=== PATIENT | male | born 1985 | race Caucasian/White ===

== ENCOUNTER 2016-10-27 02:36 | Emergency (ER) | payer MEDICAID ==
[~2016-10-27 02:36] MED LIST: DEPA250T32 PO; DEPA500T2 PO; REME15TA PO; TRAZ50TA4 PO
[2016-10-27 03:56] LABS: MEAN CORPUSCULAR HEMOGLOBIN 32.2 pg (27.0-33.0); MEAN CORPUSCULAR HGB CONC 34.5 g/dl (32.0-36.5); MEAN CORPUSCULAR VOLUME 93.4 fl (80.0-96.0); RED CELL DISTRIBUTION WIDTH 12.6 % (11.5-14.5); WHITE BLOOD COUNT 7.1 K/mm3 (4.0-10.0)
[2016-10-27 04:08] LABS: AMPHETAMINES LEVEL URINE NEGATIVE (NEGATIVE); BENZODIAZEPINES URINE NEGATIVE (NEGATIVE); COCAINE METABOLITE URINE POSITIVE (NEGATIVE); CONTROL LINE INT CTR LINE PRESENT; METHADONE URINE NEGATIVE (NEGATIVE); OPIATES URINE NEGATIVE (NEGATIVE); TRICYCLIC ANTIDEPRESS URINE NEGATIVE (NEGATIVE)
[2016-10-27 04:17] LABS: ALBUMIN/GLOBULIN RATIO 1.11 (1.00-1.93); ALKALINE PHOSPHATASE 69 U/L (45-117); ANION GAP 11 MEQ/L (8-16); AST/SGOT 30 U/L (15-37); BILIRUBIN,DIRECT < 0.1 MG/DL (0.0-0.2); BILIRUBIN,TOTAL 0.2 MG/DL (0.2-1.0); BLOOD UREA NITROGEN 11 MG/DL (7-18); CARBON DIOXIDE LEVEL 27 MEQ/L (21-32); CHLORIDE LEVEL 107 MEQ/L (98-107); CREATININE FOR GFR 0.75 MG/DL (0.70-1.30); GLOMERULAR FILTRATION RATE > 60.0 (>60); GLUCOSE, FASTING 102 MG/DL (70-105); SODIUM LEVEL 145 MEQ/L (136-145); TOTAL PROTEIN 7.6 GM/DL (6.4-8.2)
[2016-10-27 04:50] LABS: ALT/SGPT 28 U/L (12-78)
[2016-10-27] MEDS ORDERED: DIVALPROEX 250 MG TAB As Ordered ONE (07:35)
--- NOTE | 2016-10-27 15:03 | EDDOCDS ---
Physician Documentation [facility] Name: Chandler Paredes Age: 31 yrs Sex: Male : 1985 Arrival Date: 10/27/2016 Time: 02:36 Bed [facility] Private MD: Disposition: 10/27/16 14:42 Discharged to Home/Self Care. Impression: Alcohol use, unspecified with intoxication. - Condition is Stable. - Discharge Instructions: Alcohol Intoxication. - Medication Reconciliation, Local Pharmacy Hours form. - Follow up: Private Physician; When: Call to arrange an appointment; Reason: Continuance of care. - Problem is new. - Symptoms have improved. Historical: - Allergies: no known allergies; - Home Meds: 1. Depakote ER 750 mg Oral Tb24 bid 2. trazodone 50 mg Oral tab nightly 3. Gabapentin Unknown Oral Unknown 4. Remeron 15 mg Oral tab 1 tab once daily 5. albuterol sulfate 90 mcg/actuation Inhl aepb 1 puff every 4 hours - PMHx: Asthma; Bipolar disorder; PTSD; Seizure Disorder; - PSHx: Hernia repair; - Social history: Smoking status: Patient uses tobacco products, heavy tobacco smoker. No barriers to communication noted, The patient speaks fluent Palauan. - Family history: Not pertinent. - : The pt / caregiver states he / she is not on anticoagulants. Home medication list is obtained from the patient. - Exposure Risk Screening:: None identified. Vital Signs: 10/27 02:46 BP 145 / 76; Pulse 70; Resp 20; Temp 96.3; Pulse Ox 99% ; Weight 65.77 kg / 145 lbs; [facility] Height 5 ft. 6 in. (167.64 cm); Pain 7/10; 05:00 BP 120 / 63; Pulse 71; Resp 18; Temp 96.5; Pulse Ox 96% ; Pain 6/10; mas 14:54 BP 118 / 53; Pulse 68; Resp 16; Temp 97.3(O); Pulse Ox 97% on R/A; Pain 0/10; bcj 02:46 Body Mass Index 23.40 (65.77 kg, 167.64 cm) [facility] MDM: 03:44 Consult PFS/PSA/Order Packer Or Packager ordered. [facility] 03:44 Consult PFS/PSA/Order Packer Or Packager: Patient's case requires discussion with on-call [facility] Psychiatrist ordered. 03:44 PSA/PFS to call Nursing Train Dispatcher, to enter patient data on [place] Safe Act if patient slm involuntarily admitted or transferred for SI or HI ordered. 03:44 Confirm accurate psychiatric medication list and times of last dosage ordered. [facility] 03:44 Detain Pt Until Medically/PFS Cleared ordered. slm 03:45 Acetaminophen Level Ordered. EDMS 03:45 Basic Metabolic Profile Ordered. EDMS 03:45 Complete Blood Count Ordered. EDMS 03:45 Drug Eval Toxicology ED Only Ordered. EDMS 03:45 Ethyl Alcohol (ethanol) Ordered. EDMS 03:45 Liver Profile Ordered. EDMS 03:45 Salicylate Level Ordered. EDMS 03:45 Thyroid Stimulating Hormone Ordered. EDMS 04:40 ECG WITH READING ER PHYS+CARDIAG ordered. EDMS 05:17 REGULAR DIET PLASTIC DE ANDA+DIET ordered. EDMS 05:25 Acetaminophen Level Reviewed. mm11 05:25 Basic Metabolic Profile Reviewed. mm11 05:25 Complete Blood Count Reviewed. mm11 05:25 Drug Eval Toxicology ED Only Reviewed. mm11 05:25 Ethyl Alcohol (ethanol) Reviewed. mm11 05:25 Salicylate Level Reviewed. mm11 05:25 Thyroid Stimulating Hormone Reviewed. mm11 05:25 Liver Profile Reviewed. mm11 06:39 REGULAR DIET PLASTIC DE ANDA+DIET ordered. EDMS 07:[address] - Divalproex Sodium Delayed Release Tablet 750 mg PO once ordered. jjr 11:07 REGULAR DIET PLASTIC DE ANDA+DIET ordered. EDMS 11:42 Consult PFS/PSA/Order Packer Or Packager complete. ml4 11:42 Consult PFS/PSA/Order Packer Or Packager: Patient's case requires discussion with on-call [facility] Psychiatrist complete. 11:42 PSA/PFS to call Nursing Train Dispatcher, to enter patient data [place] Safe [place] if patient ml4 involuntarily admitted or transferred for SI or HI complete. Administered Medications: 07:44 Drug: Depakote DR - Divalproex Sodium 750 mg [divalproex 250 mg tablet,delayed release jjr (3 tabs)] Route: PO; Signatures: Dispatcher [employer] EDMS Jabari Doyle, RN RN Jesusita Martinez, PSA PSA ml4 Kael Lugo, DO mm11 Cornelia Jang, ADOLFO RN jAyanna Cabrales,BERNARD REDN Valorie Ackerman MD MD fg Smith, Kim,RN RN kas2 Dahlia Pedraza,RN RN tm5 MTDD
--- NOTE | 2016-10-27 15:04 | EDDOCDS ---
Nurse's Notes [facility] Name: Chandler Paredes Age: 31 yrs Sex: Male : 1985 Arrival Date: 10/27/2016 Time: 02:36 Bed [facility] Private MD: Diagnosis: Alcohol use, unspecified with intoxication Presentation: 10/27 02:40 Presenting complaint: [place] PD said patient called dispatch saying he had been kas2 drinking tonight. Stated he drank 1/2 bottle of moonshine, 12 pack of bud and 3 trazadone. He stated to dispatch that he wanted to kill everyone in [place] and everyone on [place]. He denies any harm to himself. Mental Health Triage Level: Level 2: The patient displays active homicidal ideations. Adult Sepsis Screening: The patient does not have new or worsening altered mentation. Patient's respiratory rate is less than 22. Systolic blood pressure is greater than 100. Patient has a qSOFA score of 0- Negative Sepsis Screen. Suicide/Homicide risk assessment- The patient admits to and/or has been reported to be having homicidal ideations. Status: Patient is not a vice president [employer] services or dependent. Transition of care: patient was not received from another setting of care. 02:40 Acuity: ISRA Level 3 [facility] 02:40 Method Of Arrival: Police Car [facility] Triage Assessment: 02:45 General: Appears in no apparent distress, comfortable, Behavior is appropriate for age, kas2 cooperative. Pain: Denies pain. Pt Declines HIV testing. Neurological: Level of Consciousness is awake, alert, Oriented to person, place, time. Cardiovascular: Rhythm is regular. Respiratory: Airway is patent Respiratory effort is even, unlabored, Respiratory pattern is regular, symmetrical, Breath sounds are clear. GI: Abdomen is flat, non- distended Bowel sounds present X 4 quads. Derm: Skin is intact, Skin is dry, Skin is pink, warm & dry. Skin temperature is warm. Historical: - Allergies: no known allergies; - Home Meds: 1. Depakote ER 750 mg Oral Tb24 bid 2. trazodone 50 mg Oral tab nightly 3. Gabapentin Unknown Oral Unknown 4. Remeron 15 mg Oral tab 1 tab once daily 5. albuterol sulfate 90 mcg/actuation Inhl aepb 1 puff every 4 hours - PMHx: Asthma; Bipolar disorder; PTSD; Seizure Disorder; - PSHx: Hernia repair; - Social history: Smoking status: Patient uses tobacco products, heavy tobacco smoker. No barriers to communication noted, The patient speaks fluent Faroese. - Family history: Not pertinent. - : The pt / caregiver states he / she is not on anticoagulants. Home medication list is obtained from the patient. - Exposure Risk Screening:: None identified. Screenin:00 Screening information is obtained from the patient. Fall risk: No risks identified. tm5 Assistance ADL's: requires no assistance with activities of daily living. Abuse/DV Screen: The patient / caregiver reports he/she is: not in a situation that causes fear, pain or injury. Nutritional screening: No deficits noted. Advance Directives: Currently, there is no health care proxy. home support is adequate. Assessment: 02:47 General: See triage note.. kas2 03:13 General: Appears in no apparent distress, Behavior is cooperative. General: pt resting slm on stretcher security observing . Respiratory: Airway is patent Respiratory effort is even, unlabored. 04:30 General: Appears in no apparent distress, comfortable, Behavior is appropriate for age, slm cooperative. General: resting on stretcher security observing . Neurological: Level of Consciousness is awake, alert, obeys commands. Respiratory: Airway is patent Respiratory effort is even, unlabored. 05:16 General: Appears in no apparent distress, comfortable, to be sleeping. Behavior is slm quiet. General: pt asleep on stretcher security observing . Respiratory: Airway is patent Respiratory effort is even, unlabored. Derm: Skin is pink, warm & dry. 06:07 General: Appears in no apparent distress, comfortable, Behavior is cooperative, quiet. slm General: pt resting on stretcher asleep security observing . Neurological: Level of Consciousness is alert, obeys commands. Respiratory: Airway is patent Respiratory effort is even, unlabored. 07:28 General: Appears to be sleeping. security in view. jjr 07:45 General: bilateral Velcro wrist splints in place. jjr 09:00 General: Appears in no apparent distress, to be sleeping. Respiratory: Respiratory ead effort is even, unlabored. Derm: Skin is pink, warm & dry. 10:00 General: Appears in no apparent distress, to be sleeping. Respiratory: Respiratory ead effort is even, unlabored. Derm: Skin is pink, warm & dry. 11:00 General: Appears in no apparent distress, to be sleeping. Respiratory: Respiratory ead effort is even, unlabored. Derm: Skin is pink, warm & dry. 13:27 General: Appears in no apparent distress, comfortable, Behavior is cooperative. bcj Neurological: Level of Consciousness is awake, alert. Derm: Skin is pink, warm & dry. 14:54 General: Appears in no apparent distress, comfortable, Behavior is cooperative. Pain: bcj Denies pain. Neurological: Level of Consciousness is awake, alert, Oriented to person, place, time. Respiratory: Airway is patent. Derm: Skin is pink, warm & dry. Psych: 04:01 Mental Health Triage Level: Level 2: The patient displays active suicidal ideations. tm5 The patient was brought to the ED for evaluation because of a legal pickup order. 04:01 Subjective: The patients chief complaint is "I want to kill all of [place] & myself". Delusions are denied. Patient's mood is anxious. 04:01 Objective: Patient is cooperative, Speech is normal. Affect is appropriate. 04:01 Substance abuse: Patient uses beer, unknown amount Last use was 1 hours ago. 04:01 Consultation: ED MD notified of patients status, 04:03 Emergency MH Worker made aware of pt status. Vital Signs: 02:46 BP 145 / 76; Pulse 70; Resp 20; Temp 96.3; Pulse Ox 99% ; Weight 65.77 kg; Height 5 ft. [facility] 6 in. (167.64 cm); Pain 7/10; 05:00 BP 120 / 63; Pulse 71; Resp 18; Temp 96.5; Pulse Ox 96% ; Pain 6/10; mas 14:54 BP 118 / 53; Pulse 68; Resp 16; Temp 97.3(O); Pulse Ox 97% on R/A; Pain 0/10; bcj 02:46 Body Mass Index 23.40 (65.77 kg, 167.64 cm) [facility] Vitals: 02:46 Log In time N/A- police car arrival. kas2 02:46 Log In time N/A- police car arrival. [facility] ED Course: 02:37 Patient visited by Jimenez, Clare, Reg. hs2 02:37 Patient moved to Waiting hs2 02:38 Patient moved to [facility] hs2 02:43 Triage Initiated kas2 02:47 Patient visited by Diana Rubio RN. kas2 02:54 Pt greeted and oriented to ED. Patient advised of names of staff involved in care, mas location of call frankel, wait times and NPO status. Accompanied by Law Enforcement, [employer] on , Patient has correct armband on for positive identification. Placed in psych safe attire. Bed in low position. Call light in reach. Side rails up X 1. Security observing. Property removed, inventory done, secured in belongings bag- Placed in locker 4. Door closed. Noise minimized. Moved to private room. Verbal reassurance given. Warm blanket given. Pillow given. Psych Safety Check: Location: Psych Room. Visual Assessment: cooperative \\T\\ this time. 03:00 Patient visited by Talha Flowers. mas 03:15 Patient visited by Talha Flowers. mas 03:30 Patient visited by Talha Flowers. mas 03:45 Ayanna Augustine LPN is Primary Nurse. slm 03:45 Patient visited by Talha Flowers. mas 03:45 No IV's were initiated during this patient's visit. No procedures done that require slm assistance. Labs drawn. (by ED staff). Sent per order to lab. Urine collected. Urine specimen sent to lab. 03:48 Kael Lugo DO is Attending Physician. mm11 03:48 Patient visited by Kael Lugo DO. mm11 03:49 Acetaminophen Level Sent. slm 03:49 Basic Metabolic Profile Sent. slm 03:49 Complete Blood Count Sent. slm 03:49 Drug Eval Toxicology ED Only Sent. slm 03:49 Ethyl Alcohol (ethanol) Sent. slm 03:49 Liver Profile Sent. slm 03:49 Salicylate Level Sent. slm 03:49 Thyroid Stimulating Hormone Sent. slm 04:00 Patient visited by Talha Flowers. mas 04:00 Awaiting ED physician evaluation. tm5 04:00 The patient / caregiver is instructed regarding the plan of care and ED course. tm5 04:15 Patient visited by Talha Flowers. mas 04:30 Patient visited by Talha Flowers. mas 04:38 Patient visited by Kael Lugo DO. mm11 04:45 Patient visited by Talha Flowers. mas 05:00 Patient visited by Talha Flowers. mas 05:15 Patient visited by Talha Flowers. mas 05:17 Patient visited by Ayanna Augustine LPN. slm 05:30 Patient visited by Talha Flowers. mas 05:45 Patient visited by Talha Flowers. mas 06:00 Patient visited by Talha Flowers. mas 06:09 Patient visited by Ayanna Augustine LPN. slm 06:15 Patient visited by Talha Flowers. mas 06:30 Patient visited by Talha Flowers. mas 06:47 Patient visited by Talha Flowers. mas 07:01 Patient visited by Talha Flowers. mas 07:11 Patient visited by Lee Moran Security Aide. pjf 07:26 Patient visited by Lee Moran Security Aide. pjf 07:28 Patient visited by Cornelia Jang, ADOLFO. jjr 07:34 Attending Physician role handed off by Kael Lugo DO fg 07:34 Valorie Turk MD is Attending Physician. fg 07:45 Patient visited by Lee Moran Security Aide. pjf 08:04 Patient visited by Lee Moran Security Aide. pjf 08:15 Psych Safety Check: Location: Psych Room. Visual Assessment: Cooperative. pjf 08:29 Patient visited by Lee Moran Security Aidadrián. pjf 08:44 Patient visited by Lee Moran Security Aide. pjf 09:00 Patient visited by Lee Moran Security Aide. pjf 09:15 Patient visited by Robert. Cirilo rn1 09:31 Patient visited by Lee Moran Security Aide. pjf 09:45 Psych Safety Check: Location: Psych Room. Visual Assessment: Cooperative. pjf 09:56 Patient visited by Lee Moran Security Aide. pjf 10:20 Patient visited by Lee Moran Security Aide. pjf 10:41 Patient visited by Lee Moran Security Aide. pjf 10:59 Patient visited by Lee Moran Security Aide. pjf 11:23 Patient visited by Lee Moran Security Aide. pjf 11:34 Patient visited by Lee Moran Security Aide. pjf 11:45 Patient visited by Lee Moran Security Aide. pjf 12:02 Patient visited by Lee Moran Security Aide. pjf 12:15 Patient visited by Lee Moran Security Aide. pjf 12:35 Patient visited by Odilon Kerr. rn1 12:48 Patient visited by Odilon Kerr. rn1 13:07 Patient visited by Odilon Kerr. rn1 13:25 Patient visited by Odilon Kerr. rn1 13:27 Resting quietly. Awaiting disposition. bcj 13:27 Security observing. bcj 13:28 Patient visited by Jabari Doyle RN. bcj 13:44 Patient visited by Lee Moran Security Aide. pjf 14:11 Patient visited by Jabari Doyle RN. bcj 14:29 Patient visited by Lee Moran Security Aide. pjf 14:56 Patient visited by Jabari Doyle RN. bcj 15:02 Patient visited by Jabari Doyle RN. [facility] Administered Medications: 07:44 Drug: Depakote DR - Divalproex Sodium 750 mg [divalproex 250 mg tablet,delayed release jjr (3 tabs)] Route: PO; Order Results: Lab Order: Acetaminophen Level; SPEC'M 10/27/16 02:52 Test: ACETAMINOPHEN LEVEL; Value: < 2.0; Range: 10.0-30.0; Abnormal: Below low normal; Units: UG/ML; Status: F Lab Order: Basic Metabolic Profile; SPEC'M 10/27/16 02:52 Test: GLUCOSE, FASTING; Value: 102; Range: 70-105; Units: MG/DL; Status: F Test: BLOOD UREA NITROGEN; Value: 11; Range: 7-18; Units: MG/DL; Status: F Test: CREATININE FOR GFR; Value: 0.75; Range: 0.70-1.30; Units: MG/DL; Status: F Test: GLOMERULAR FILTRATION RATE; Value: > 60.0; Range: >60; Status: F Test: SODIUM LEVEL; Value: 145; Range: 136-145; Units: MEQ/L; Status: F Test: POTASSIUM SERUM; Value: 4.0; Range: 3.5-5.1; Units: MEQ/L; Status: F Test: CHLORIDE LEVEL; Value: 107; Range: 98-107; Units: MEQ/L; Status: F Test: CARBON DIOXIDE LEVEL; Value: 27; Range: 21-32; Units: MEQ/L; Status: F Test: ANION GAP; Value: 11; Range: 8-16; Units: MEQ/L; Status: F Test: CALCIUM LEVEL; Value: 8.0; Range: 8.5-10.1; Abnormal: Below low normal; Units: MG/DL; Status: F Test Note: ; Units are mL/min/1.73 m2 Chronic Kidney Disease Staging per NKF: Stage I & II GFR >=60 Normal to Mildly Decreased Stage III GFR 30-59 Moderately Decreased Stage IV GFR 15-29 Severely Decreased Stage V GFR <15 Very Little GFR Left ESRD GFR <15 on CLINIC MD ASSOCIATE Lab Order: Complete Blood Count; [facility]' 10/27/16 02:52 Test: WHITE BLOOD COUNT; Value: 7.1; Range: 4.0-10.0; Units: K/mm3; Status: F Test: RED BLOOD COUNT; Value: 4.45; Range: 4.30-6.10; Units: M/mm3; Status: F Test: HEMOGLOBIN; Value: 14.4; Range: 14.0-18.0; Units: g/dl; Status: F Test: HEMATOCRIT; Value: 41.6; Range: 42.0-52.0; Abnormal: Below low normal; Units: %; Status: F Test: MEAN CORPUSCULAR VOLUME; Value: 93.4; Range: 80.0-96.0; Units: fl; Status: F Test: MEAN CORPUSCULAR HEMOGLOBIN; Value: 32.2; Range: 27.0-33.0; Units: pg; Status: F Test: MEAN CORPUSCULAR HGB CONC; Value: 34.5; Range: 32.0-36.5; Units: g/dl; Status: F Test: RED CELL DISTRIBUTION WIDTH; Value: 12.6; Range: 11.5-14.5; Units: %; Status: F Test: PLATELET COUNT, AUTOMATED; Value: 195; Range: 150-450; Units: k/mm3; Status: F Lab Order: Drug Eval Toxicology ED Only; SPEC'M 10/27/16 02:52 Test: AMPHETAMINES LEVEL URINE; Value: NEGATIVE; Range: NEGATIVE; Status: F Test: BARBITURATES URINE; Value: NEGATIVE; Range: NEGATIVE; Status: F Test: BENZODIAZEPINES URINE; Value: NEGATIVE; Range: NEGATIVE; Status: F Test: CANNABINOIDS URINE; Value: POSITIVE; Range: NEGATIVE; Abnormal: Above high normal; Status: F Test: COCAINE METABOLITE URINE; Value: POSITIVE; Range: NEGATIVE; Abnormal: Above high normal; Status: F Test: METHADONE URINE; Value: NEGATIVE; Range: NEGATIVE; Status: F Test: OPIATES URINE; Value: NEGATIVE; Range: NEGATIVE; Status: F Test: TRICYCLIC ANTIDEPRESS URINE; Value: NEGATIVE; Range: NEGATIVE; Status: F Test Note: ; FALSE POSITIVE RESULTS CAN BE CAUSED BY THE USE OF PANTOPRAZOLE (PROTONIX). Lab Order: Ethyl Alcohol (ethanol); SPEC'M 10/27/16 02:52 Test: ETHYL ALCOHOL (ETHANOL); Value: 0.172; Range: 0.000-0.010; Abnormal: Above high normal; Units: %; Status: F Lab Order: Liver Profile; SPEC'M 10/27/16 02:52 Test: AST/SGOT; Value: 30; Range: 15-37; Units: U/L; Status: F Test: ALT/SGPT; Value: 28; Range: 12-78; Units: U/L; Status: F Test: ALKALINE PHOSPHATASE; Value: 69; Range: 45-117; Units: U/L; Status: F Test: BILIRUBIN,TOTAL; Value: 0.2; Range: 0.2-1.0; Units: MG/DL; Status: F Test: BILIRUBIN,DIRECT; Value: < 0.1; Range: 0.0-0.2; Units: MG/DL; Status: F Test: TOTAL PROTEIN; Value: 7.6; Range: 6.4-8.2; Units: GM/DL; Status: F Test: ALBUMIN; Value: 4.0; Range: 3.2-5.2; Units: GM/DL; Status: F Test: ALBUMIN/GLOBULIN RATIO; Value: 1.11; Range: 1.00-1.93; Status: F Lab Order: Salicylate Level; SPEC'M 10/27/16 02:52 Test: SALICYLATE LEVEL; Value: 3.2; Range: 5.0-30.0; Abnormal: Below low normal; Units: MG/DL; Status: F Lab Order: Thyroid Stimulating Hormone; SPEC'M 10/27/16 02:52 Test: THYROID STIMULATING HORMONE; Value: 6.370; Range: 0.358-3.740; Abnormal: Above high normal; Units: uIU/ML; Status: F Outcome: 06:08 No special radiology studies were completed. slm 14:42 Discharge ordered by Provider. fg 15:01 Discharge Assessment: patient administered narcotics - no. The following High Risk [facility] Discharge criteria are identified: Yes, seen by PFS prior to d/c. . Discharged to home ambulatory. Condition: stable. Discharge instructions given to patient, Instructed on discharge instructions, follow up and referral plans. 15:02 Patient left the ED. j Signatures: Jabari Doyle, RN RN Lee Partida, Kael Alex, DO DO mm11 Cornelia Jang, RN RN Talha Gonzalez Stephanie, LPN LPN Priti Delarosa,RN RN Odilon Orellana rn1 Valorie Turk MD MD Clare Jimenez, Reg Reg hs2 Diana Rubio,RN RN kas2 Dahlia Pedraza,RN RN tm5 MTDD
--- NOTE | 2016-10-27 15:48 | ECGEPIP ---
Stationary ECG Study [facility] - ED Test Date: 2016-10-27 Pat Name: DULCE BECKMAN Department: Room: - Gender: M Rag Inspector: : 1985 Requested By: HERSON Mccarthy Order Number: [id number] Reading MD: Jaelyn Hicks Measurements Intervals [place] Rate: 65 P: 57 NV: 144 QRS: 53 QRSD: 96 T: 52 QT: 369 QTc: 385 Interpretive Statements SINUS RHYTHM EARLY REPOLARIZATION INCREASED RATE/REPOLARIZATION COMPARED 08/01/14 Electronically Signed On 10-27-2016 15:48:31 EST by Jaelyn Hicks
--- NOTE | 2016-10-29 16:02 | EDDOCDS ---
Physician Documentation [facility] Name: Chandler Paredes Age: 31 yrs Sex: Male : 1985 Arrival Date: 10/27/2016 Time: 02:36 Bed [facility] Private MD: Disposition: 10/27/16 14:42 Discharged to Home/Self Care. Impression: Alcohol use, unspecified with intoxication. - Condition is Stable. - Discharge Instructions: Alcohol Intoxication. - Medication Reconciliation, Local Pharmacy Hours form. - Follow up: Private Physician; When: Call to arrange an appointment; Reason: Continuance of care. - Problem is new. - Symptoms have improved. Historical: - Allergies: no known allergies; - Home Meds: 1. Depakote ER 750 mg Oral Tb24 bid 2. trazodone 50 mg Oral tab nightly 3. Gabapentin Unknown Oral Unknown 4. Remeron 15 mg Oral tab 1 tab once daily 5. albuterol sulfate 90 mcg/actuation Inhl aepb 1 puff every 4 hours - PMHx: Asthma; Bipolar disorder; PTSD; Seizure Disorder; - PSHx: Hernia repair; - Social history: Smoking status: Patient uses tobacco products, heavy tobacco smoker. No barriers to communication noted, The patient speaks fluent Taiwanese. - Family history: Not pertinent. - : The pt / caregiver states he / she is not on anticoagulants. Home medication list is obtained from the patient. - Exposure Risk Screening:: None identified. Vital Signs: 10/27 02:46 BP 145 / 76; Pulse 70; Resp 20; Temp 96.3; Pulse Ox 99% ; Weight 65.77 kg / 145 lbs; [facility] Height 5 ft. 6 in. (167.64 cm); Pain 7/10; 05:00 BP 120 / 63; Pulse 71; Resp 18; Temp 96.5; Pulse Ox 96% ; Pain 6/10; mas 14:54 BP 118 / 53; Pulse 68; Resp 16; Temp 97.3(O); Pulse Ox 97% on R/A; Pain 0/10; bcj 02:46 Body Mass Index 23.40 (65.77 kg, 167.64 cm) [facility] MDM: 03:44 Consult PFS/PSA/Checkerer Hand ordered. [facility] 03:44 Consult PFS/PSA/Checkerer Hand: Patient's case requires discussion with on-call [facility] Psychiatrist ordered. 03:44 PSA/PFS to call Nursing Insurance Risk Manager, to enter patient data on [place] Safe [place] if patient slm involuntarily admitted or transferred for SI or HI ordered. 03:44 Confirm accurate psychiatric medication list and times of last dosage ordered. slm 03:44 Detain Pt Until Medically/PFS Cleared ordered. slm 03:45 Acetaminophen Level Ordered. EDMS 03:45 Basic Metabolic Profile Ordered. EDMS 03:45 Complete Blood Count Ordered. EDMS 03:45 Drug Eval Toxicology ED Only Ordered. EDMS 03:45 Ethyl Alcohol (ethanol) Ordered. EDMS 03:45 Liver Profile Ordered. EDMS 03:45 Salicylate Level Ordered. EDMS 03:45 Thyroid Stimulating Hormone Ordered. EDMS 04:40 ECG WITH READING ER PHYS+CARDIAG ordered. EDMS 05:17 REGULAR DIET PLASTIC DE ANAD+DIET ordered. EDMS 05:25 Acetaminophen Level Reviewed. mm11 05:25 Basic Metabolic Profile Reviewed. mm11 05:25 Complete Blood Count Reviewed. mm11 05:25 Drug Eval Toxicology ED Only Reviewed. mm11 05:25 Ethyl Alcohol (ethanol) Reviewed. mm11 05:25 Salicylate Level Reviewed. mm11 05:25 Thyroid Stimulating Hormone Reviewed. mm11 05:25 Liver Profile Reviewed. mm11 06:39 REGULAR DIET PLASTIC DE ANDA+DIET ordered. EDMS 07:[address] - Divalproex Sodium Delayed Release Tablet 750 mg PO once ordered. jjr 11:07 REGULAR DIET PLASTIC DE ANDA+DIET ordered. EDMS 11:42 Consult PFS/PSA/Checkerer Hand complete. ml4 11:42 Consult PFS/PSA/Checkerer Hand: Patient's case requires discussion with on-call [facility] Psychiatrist complete. 11:42 PSA/PFS to call Nursing Insurance Risk Manager, to enter [place] data [place] if patient ml4 involuntarily admitted or transferred for SI or HI complete. 15:06 Financial registration complete. mm15 15:06 [facility] [place] [place] Payment Agreement was scanned into [employer] and attached to record. mm15 15:07 [facility] Outpatient Referrals was scanned into [employer] and attached to record. ml4 19:59 T-Sheet-- Draft Copy was scanned into [employer] and attached to record. klr 10/28 11:11 ECG/EKG was scanned into [employer] and attached to record. gb Administered Medications: 10/27 07:44 Drug: Sena DR - Divalproex Sodium 750 mg [divalproex 250 mg tablet,delayed release margaret (3 tabs)] Route: PO; Signatures: Dispatcher [employer] EDJabari Bourgeois, RN RN Alycia Velazquez, Reg Reg gb Rosio, Jesusita, PSA PSA ml4 Kael Lugo, DO LOVE mm11 Cornelia Jang RN RN jjr Marina Rivera mm15 Ayanna Augustine,PARTNER MANAGER PARTNER MANAGER slValorie Lopez MD MD fg Smith, Kim, RN RN kas2 Krystal Chaidez TonyaRN RN tm5 The chart was reviewed and I authenticate all verbal orders and agree with the evaluation and treatment provided.Attachments: 15:06 [facility] Payment Agreement mm15 19:59 T-Sheet-- Draft Copy r 10/28 11:11 ECG/EKG bridger Chart Complete MTDD
--- NOTE | 2016-10-29 16:02 | EDDOCDS ---
Physician Documentation [facility] Name: Chandler Paredes Age: 31 yrs Sex: Male : 1985 Arrival Date: 10/27/2016 Time: 02:[address] [facility] Private MD: Disposition: 10/27/16 14:42 Discharged to Home/Self Care. Impression: Alcohol use, unspecified with intoxication. - Condition is Stable. - Discharge Instructions: Alcohol Intoxication. - Medication Reconciliation, Local Pharmacy Hours form. - Follow up: Private Physician; When: Call to arrange an appointment; Reason: Continuance of care. - Problem is new. - Symptoms have improved. Historical: - Allergies: no known allergies; - Home Meds: 1. Depakote ER 750 mg Oral Tb24 bid 2. trazodone 50 mg Oral tab nightly 3. Gabapentin Unknown Oral Unknown 4. Remeron 15 mg Oral tab 1 tab once daily 5. albuterol sulfate 90 mcg/actuation Inhl aepb 1 puff every 4 hours - PMHx: Asthma; Bipolar disorder; PTSD; Seizure Disorder; - PSHx: Hernia repair; - Social history: Smoking status: Patient uses tobacco products, heavy tobacco smoker. No barriers to communication noted, The patient speaks fluent Iranian. - Family history: Not pertinent. - : The pt / caregiver states he / she is not on anticoagulants. Home medication list is obtained from the patient. - Exposure Risk Screening:: None identified. Vital Signs: 10/27 02:46 BP 145 / 76; Pulse 70; Resp 20; Temp 96.3; Pulse Ox 99% ; Weight 65.77 kg / 145 lbs; [facility] Height 5 ft. 6 in. (167.64 cm); Pain 7/10; 05:00 BP 120 / 63; Pulse 71; Resp 18; Temp 96.5; Pulse Ox 96% ; Pain 6/10; mas 14:54 BP 118 / 53; Pulse 68; Resp 16; Temp 97.3(O); Pulse Ox 97% on R/A; Pain 0/10; bcj 02:46 Body Mass Index 23.40 (65.77 kg, 167.64 cm) [facility] MDM: 03:44 Consult PFS/PSA/Poster ordered. [facility] 03:44 Consult PFS/PSA/Poster: Patient's case requires discussion with on-call [facility] Psychiatrist ordered. 03:44 PSA/PFS to call Nursing Event Specialist Food Demonstrator, to enter [place] data [place] if patient slm involuntarily admitted or transferred for SI or HI ordered. 03:44 Confirm accurate psychiatric medication list and times of last dosage ordered. slm 03:44 Detain Pt Until Medically/PFS Cleared ordered. slm 03:45 Acetaminophen Level Ordered. EDMS 03:45 Basic Metabolic Profile Ordered. EDMS 03:45 Complete Blood Count Ordered. EDMS 03:45 Drug Eval Toxicology ED Only Ordered. EDMS 03:45 Ethyl Alcohol (ethanol) Ordered. EDMS 03:45 Liver Profile Ordered. EDMS 03:45 Salicylate Level Ordered. EDMS 03:45 Thyroid Stimulating Hormone Ordered. EDMS 04:40 ECG WITH READING ER PHYS+CARDIAG ordered. EDMS 05:17 REGULAR DIET PLASTIC DE ANDA+DIET ordered. EDMS 05:25 Acetaminophen Level Reviewed. mm11 05:25 Basic Metabolic Profile Reviewed. mm11 05:25 Complete Blood Count Reviewed. mm11 05:25 Drug Eval Toxicology ED Only Reviewed. mm11 05:25 Ethyl Alcohol (ethanol) Reviewed. mm11 05:25 Salicylate Level Reviewed. mm11 05:25 Thyroid Stimulating Hormone Reviewed. mm11 05:25 Liver Profile Reviewed. mm11 06:39 REGULAR DIET PLASTIC DE ANDA+DIET ordered. EDMS 07:[address] - Divalproex Sodium Delayed Release Tablet 750 mg PO once ordered. jjr 11:07 REGULAR DIET PLASTIC DE ANDA+DIET ordered. EDMS 11:42 Consult PFS/PSA/Poster complete. ml4 11:42 Consult PFS/PSA/Poster: Patient's case requires discussion with on-call [facility] Psychiatrist complete. 11:42 PSA/PFS to call Nursing Event Specialist Food Demonstrator, to enter [place] data [place] if patient ml4 involuntarily admitted or transferred for SI or HI complete. 15:06 Financial registration complete. mm15 15:06 [facility] Payment Agreement was scanned into [employer] and attached to record. mm15 15:07 [facility] Outpatient Referrals was scanned into [employer] and attached to record. ml4 19:59 T-Sheet-- Draft Copy was scanned into [employer] and attached to record. klr 10/28 11:11 ECG/EKG was scanned into [employer] and attached to record. gb Administered Medications: 10/27 07:44 Drug: Sena DR - Divalproex Sodium 750 mg [divalproex 250 mg tablet,delayed release margaret (3 tabs)] Route: PO; Signatures: Dispatcher [employer] EDJabari Bourgeois, RN RN Alycia Velazquez, Reg Reg gb Rosio, Jesusita, PSA PSA ml4 Kael Lugo, DO LOVE mm11 Cornelia Jang RN RN jjr Marina Rivera mm15 Ayanna Augustine,PAINTER TUMBLING BARREL PAINTER TUMBLING BARREL slValorie Lopez MD MD fg Smith, Kim, RN RN kas2 Krystal Chaidez TonyaRN RN tm5 The chart was reviewed and I authenticate all verbal orders and agree with the evaluation and treatment provided.Attachments: 15:06 [facility] Payment Agreement mm15 19:59 T-Sheet-- Draft Copy r 10/28 11:11 ECG/EKG bridger Chart Complete MTDD
--- NOTE | 2016-10-29 16:03 | EDDOCDS ---
Nurse's Notes [facility] Name: Chandler Beckman Age: 31 yrs Sex: Male : 1985 Arrival Date: 10/27/2016 Time: 02:36 Bed [facility] Private MD: Diagnosis: Alcohol use, unspecified with intoxication Presentation: 10/27 02:40 Presenting complaint: [place] PD said patient called dispatch saying he had been kas2 drinking tonight. Stated he drank 1/2 bottle of moonshine, 12 pack of bud and 3 trazadone. He stated to dispatch that he wanted to kill everyone in [place] and everyone on [place]. He denies any harm to himself. Mental Health Triage Level: Level 2: The patient displays active homicidal ideations. Adult Sepsis Screening: The patient does not have new or worsening altered mentation. Patient's respiratory rate is less than 22. Systolic blood pressure is greater than 100. Patient has a qSOFA score of 0- Negative Sepsis Screen. Suicide/Homicide risk assessment- The patient admits to and/or has been reported to be having homicidal ideations. Status: Patient is not a media services specialist or dependent. Transition of care: patient was not received from another setting of care. 02:40 Acuity: ISRA Level 3 [facility] 02:40 Method Of Arrival: Police Car [facility] Triage Assessment: 02:45 General: Appears in no apparent distress, comfortable, Behavior is appropriate for age, kas2 cooperative. Pain: Denies pain. Pt Declines HIV testing. Neurological: Level of Consciousness is awake, alert, Oriented to person, place, time. Cardiovascular: Rhythm is regular. Respiratory: Airway is patent Respiratory effort is even, unlabored, Respiratory pattern is regular, symmetrical, Breath sounds are clear. GI: Abdomen is flat, non- distended Bowel sounds present X 4 quads. Derm: Skin is intact, Skin is dry, Skin is pink, warm & dry. Skin temperature is warm. Historical: - Allergies: no known allergies; - Home Meds: 1. Depakote ER 750 mg Oral Tb24 bid 2. trazodone 50 mg Oral tab nightly 3. Gabapentin Unknown Oral Unknown 4. Remeron 15 mg Oral tab 1 tab once daily 5. albuterol sulfate 90 mcg/actuation Inhl aepb 1 puff every 4 hours - PMHx: Asthma; Bipolar disorder; PTSD; Seizure Disorder; - PSHx: Hernia repair; - Social history: Smoking status: Patient uses tobacco products, heavy tobacco smoker. No barriers to communication noted, The patient speaks fluent Chadian. - Family history: Not pertinent. - : The pt / caregiver states he / she is not on anticoagulants. Home medication list is obtained from the patient. - Exposure Risk Screening:: None identified. Screenin:00 Screening information is obtained from the patient. Fall risk: No risks identified. tm5 Assistance ADL's: requires no assistance with activities of daily living. Abuse/DV Screen: The patient / caregiver reports he/she is: not in a situation that causes fear, pain or injury. Nutritional screening: No deficits noted. Advance Directives: Currently, there is no health care proxy. home support is adequate. Assessment: 02:47 General: See triage note.. kas2 03:13 General: Appears in no apparent distress, Behavior is cooperative. General: pt resting slm on stretcher security observing . Respiratory: Airway is patent Respiratory effort is even, unlabored. 04:30 General: Appears in no apparent distress, comfortable, Behavior is appropriate for age, slm cooperative. General: resting on stretcher security observing . Neurological: Level of Consciousness is awake, alert, obeys commands. Respiratory: Airway is patent Respiratory effort is even, unlabored. 05:16 General: Appears in no apparent distress, comfortable, to be sleeping. Behavior is slm quiet. General: pt asleep on stretcher security observing . Respiratory: Airway is patent Respiratory effort is even, unlabored. Derm: Skin is pink, warm & dry. 06:07 General: Appears in no apparent distress, comfortable, Behavior is cooperative, quiet. slm General: pt resting on stretcher asleep security observing . Neurological: Level of Consciousness is alert, obeys commands. Respiratory: Airway is patent Respiratory effort is even, unlabored. 07:28 General: Appears to be sleeping. security in view. jjr 07:45 General: bilateral Velcro wrist splints in place. jjr 09:00 General: Appears in no apparent distress, to be sleeping. Respiratory: Respiratory ead effort is even, unlabored. Derm: Skin is pink, warm & dry. 10:00 General: Appears in no apparent distress, to be sleeping. Respiratory: Respiratory ead effort is even, unlabored. Derm: Skin is pink, warm & dry. 11:00 General: Appears in no apparent distress, to be sleeping. Respiratory: Respiratory ead effort is even, unlabored. Derm: Skin is pink, warm & dry. 13:27 General: Appears in no apparent distress, comfortable, Behavior is cooperative. bcj Neurological: Level of Consciousness is awake, alert. Derm: Skin is pink, warm & dry. 14:54 General: Appears in no apparent distress, comfortable, Behavior is cooperative. Pain: bcj Denies pain. Neurological: Level of Consciousness is awake, alert, Oriented to person, place, time. Respiratory: Airway is patent. Derm: Skin is pink, warm & dry. Mental Health Eval: 12:16 Mental health consult is initiated at 12:00. Status: The patient is not a ml4 media services specialist or dependent. [facility] Behavioral Health: The patient is not an established patient of [facility] Behavioral Health. Referral Information: Evaluation referral is generated by Shari(Dewey Dejesus # [id number]) on a 9.. The patient was referred for evaluation because pt contacted Dispatch while intoxicated threatening to kill [place] and [facility] [place]. . Subjective: The patients chief complaint is pt states, "I was just really drunk, I wasn't going to kill anybody." Pt reports getting into a verbal altercation with girlfriend last night which caused pt to terminate their relationship. States he was upset and started drinking by himself and became intoxicated. He started reflecting back on his Father's and Mother's illness which triggered him to become angry. Father killed himself by OD 2 years ago and his upcoming anniversary of his is the end of October. He reports his Father was a drug abuser and feels he intentionally overdosed to kill himself, however is unaware of the specific details. He admits being incarcerated at the time of his Father's and feels somewhat guilty. Other stressors include his Mother being paralyzed from a stroke that happened yrs ago. Pt states, "alcohol always brings out bad emotions for me, that's why I don't drink anymore." Pt admits also becoming angry after watching the News about "banning the refugees and about the [place] defense." States his Family used to work on [place] and became more upset thinking President Nayan would decrease the troops. Admits going on rant due to the alcohol. Pt adamantly denies SI and HI, able to CFS. . Delusions are denied. Patient's mood is appropriate. Hallucinations are denied. Mental Health history: Bipolar Disorder, Mental Health Admissions: [facility] 08/01/14 Current Outpatient Mental Health Services: Therapist / Agency: Rosalinda/JUAN C . Rosalinda Ingram, DIRECTOR LEARNING AND DEVELOPMENT \\T\\ [facility] . Current living environment is Family / Home Support: adequate support by uncle The patient currently lives alone, however uncle lives across the street and is very supportive . The patient is single. Patient presents to Emergency Department with the following symptoms within the past 2 weeks: agitation, alcohol abuse, anger, anxiety, labile mood, HI towards "everyone in [place] and [place]" while intoxicated, however adamantly denies thoughts currently . poor concentration, poor impulse control, relational problem. Substance abuse: Patient uses of liquor, Patient uses marijuana Patient uses tobacco 1 pack Frequency daily. Mental status exam: Patients appearance is unkempt, Patient's behavior is cooperative, Speech is normal. Affect is appropriate. Mood is anxious. Hallucinations are denied. Appetite is normal. Memory is good. Energy level is normal. Content of thought is normal. Thought process is intact. Cognitive level is oriented to person, place, time and situation Patient's insight is fair. Judgement is fair. Rapport with interviewer is good. Suicidal Ideation is denied. Homicidal ideation is denied. Disposition: Medically cleared for disposition by Valorie Turk MD Psychiatric Consult is performed by phone with Dr Afshin Short MD. [facility] Admission Criteria: Not Applicable. DSM-V Differential Diagnosis: Bipolar I Disorder (F31.0) Current or most recent episode unspecified (F31.9). Narrative: Pt is able to be discharged, adamantly denies SI and HI, able to CFS. 15:05 Narrative: Referrals for outpt services was given at bedside and directed to follow up ml4 with [facility] for further tx. Psych: 04:01 Mental Health Triage Level: Level 2: The patient displays active suicidal ideations. tm5 The patient was brought to the ED for evaluation because of a legal pickup order. 04:01 Subjective: The patients chief complaint is "I want to kill all of [place] & myself". Delusions are denied. Patient's mood is anxious. 04:01 Objective: Patient is cooperative, Speech is normal. Affect is appropriate. 04:01 Substance abuse: Patient uses beer, unknown amount Last use was 1 hours ago. 04:01 Consultation: ED MD notified of patients status, 04:03 Emergency MH Worker made aware of pt status. Vital Signs: 02:46 BP 145 / 76; Pulse 70; Resp 20; Temp 96.3; Pulse Ox 99% ; Weight 65.77 kg; Height [address] [facility] 6 in. (167.64 cm); Pain 7/10; 05:00 BP 120 / 63; Pulse 71; Resp 18; Temp 96.5; Pulse Ox 96% ; Pain 6/10; mas 14:54 BP 118 / 53; Pulse 68; Resp 16; Temp 97.3(O); Pulse Ox 97% on R/A; Pain 0/10; bcj 02:46 Body Mass Index 23.40 (65.77 kg, 167.64 cm) [facility] Vitals: 02:46 Log In time N/A- police car arrival. kas2 02:46 Log In time N/A- police car arrival. [facility] ED Course: 02:37 Patient visited by Clare Jimenez Reg. hs2 02:37 Patient moved to Waiting hs2 02:38 Patient moved to [facility] hs2 02:43 Triage Initiated kas2 02:47 Patient visited by Diana Rubio RN. [facility] 02:54 Pt greeted and oriented to ED. Patient advised of names of staff involved in care, [facility] location of call frankel, wait times and NPO status. Accompanied by Law Enforcement, NILA on , Patient has correct armband on for positive identification. Placed in psych safe attire. Bed in low position. Call light in reach. Side rails up X 1. Security observing. Property removed, inventory done, secured in belongings bag- Placed in locker 4. Door closed. Noise minimized. Moved to private room. Verbal reassurance given. Warm blanket given. Pillow given. Psych Safety Check: Location: Psych Room. Visual Assessment: cooperative \\T\\ this time. 03:00 Patient visited by Talha Flowers. mas 03:15 Patient visited by Talha Flowers. mas 03:30 Patient visited by Talha Flowers. mas 03:45 Ayanna Augustine LPN is Primary Nurse. slm 03:45 Patient visited by Talha Flowers. mas 03:45 No IV's were initiated during this patient's visit. No procedures done that require slm assistance. Labs drawn. (by ED staff). Sent per order to lab. Urine collected. Urine specimen sent to lab. 03:48 Herson Lugo DO is Attending Physician. mm11 03:48 Patient visited by Herson Lugo DO. mm11 03:49 Acetaminophen Level Sent. slm 03:49 Basic Metabolic Profile Sent. slm 03:49 Complete Blood Count Sent. slm 03:49 Drug Eval Toxicology ED Only Sent. slm 03:49 Ethyl Alcohol (ethanol) Sent. slm 03:49 Liver Profile Sent. slm 03:49 Salicylate Level Sent. slm 03:49 Thyroid Stimulating Hormone Sent. slm 04:00 Patient visited by Talha Flowers. mas 04:00 Awaiting ED physician evaluation. tm5 04:00 The patient / caregiver is instructed regarding the plan of care and ED course. tm5 04:15 Patient visited by Talha Flowers. mas 04:30 Patient visited by Talha Flowers. mas 04:38 Patient visited by Herson Lugo DO. mm11 04:45 Patient visited by Talha Flowers. mas 05:00 Patient visited by Talha Flowers. mas 05:15 Patient visited by Talha Flowers. mas 05:17 Patient visited by Ayanna Augustine LPN. slm 05:30 Patient visited by Talha Flowers. mas 05:45 Patient visited by Talha Flowers. mas 06:00 Patient visited by Talha Flowers. mas 06:09 Patient visited by Ayanna Augustine LPN. slm 06:15 Patient visited by Talha Flowers. mas 06:30 Patient visited by Talha Flowers. mas 06:47 Patient visited by Talha Flwoers. mas 07:01 Patient visited by Talha Flowers. mas 07:11 Patient visited by Lee Moran Security Aide. pjf 07:26 Patient visited by Lee Moran Security Aide. pjf 07:28 Patient visited by Cornelia Jang, ADOLFO. jjr 07:34 Attending Physician role handed off by Herson Lugo DO fg 07:34 Valorie Turk MD is Attending Physician. fg 07:45 Patient visited by Lee Moran Security Aide. pjf 08:04 Patient visited by Lee Moran Security Aide. pjf 08:15 Psych Safety Check: Location: Psych Room. Visual Assessment: Cooperative. pjf 08:29 Patient visited by Lee Moran Security Aide. pjf 08:44 Patient visited by Lee Moran Security Aide. pjf 09:00 Patient visited by Lee Moran Security Aide. pjf 09:15 Patient visited by Odilon Kerr. rn1 09:31 Patient visited by Lee Moran Security Aide. pjf 09:45 Psych Safety Check: Location: Psych Room. Visual Assessment: Cooperative. pjf 09:56 Patient visited by Lee Moran Security Aide. pjf 10:20 Patient visited by Lee Moran Security Aide. pjf 10:41 Patient visited by eLe Moran Security Aide. pjf 10:59 Patient visited by Lee Moran Security Aide. pjf 11:23 Patient visited by Lee Moran Security Aide. pjf 11:34 Patient visited by Lee Moran Security Aide. pjf 11:45 Patient visited by Lee Moran Security Aide. pjf 12:02 Patient visited by Lee Moran Security Aide. pjf 12:15 Patient visited by Lee Moran Security Aide. pjf 12:35 Patient visited by Odilon Kerr. rn1 12:48 Patient visited by Odilon Kerr. rn1 13:07 Patient visited by Odilon Kerr. rn1 13:25 Patient visited by Odilon Kerr. rn1 13:27 Resting quietly. Awaiting disposition. bcj 13:27 Security observing. bcj 13:28 Patient visited by Jabari Doyle, ADOLFO. bcj 13:44 Patient visited by Lee Moran Security Aidadrián. pjf 14:11 Patient visited by Jabari Doyle RN. bcj 14:29 Patient visited by Lee Moran Security Aidadrián. pjf 14:56 Patient visited by Jabari Doyle RN. bcj 15:02 Patient visited by Jabari Doyle, RN. bcj 15:06 [facility] Payment Agreement was scanned into [employer] and attached to record. mm15 15:07 PSA Outpatient Referrals was scanned into [employer] and attached to record. ml4 16:04 EKG-ADULT Returned. EDMS 19:59 T-Sheet-- Draft Copy was scanned into [employer] and attached to record. klr 10/28 11:11 ECG/EKG was scanned into [employer] and attached to record. gb Administered Medications: 10/27 07:44 Drug: Depakote DR - Divalproex Sodium 750 mg [divalproex 250 mg tablet,delayed release jjr (3 tabs)] Route: PO; Order Results: Lab Order: Acetaminophen Level; SPEC'M 10/27/16 02:52 Test: ACETAMINOPHEN LEVEL; Value: < 2.0; Range: 10.0-30.0; Abnormal: Below low normal; Units: UG/ML; Status: F Lab Order: Basic Metabolic Profile; SPEC'M 10/27/16 02:52 Test: GLUCOSE, FASTING; Value: 102; Range: 70-105; Units: MG/DL; Status: F Test: BLOOD UREA NITROGEN; Value: 11; Range: 7-18; Units: MG/DL; Status: F Test: CREATININE FOR GFR; Value: 0.75; Range: 0.70-1.30; Units: MG/DL; Status: F Test: GLOMERULAR FILTRATION RATE; Value: > 60.0; Range: >60; Status: F Test: SODIUM LEVEL; Value: 145; Range: 136-145; Units: MEQ/L; Status: F Test: POTASSIUM SERUM; Value: 4.0; Range: 3.5-5.1; Units: MEQ/L; Status: F Test: CHLORIDE LEVEL; Value: 107; Range: 98-107; Units: MEQ/L; Status: F Test: CARBON DIOXIDE LEVEL; Value: 27; Range: 21-32; Units: MEQ/L; Status: F Test: ANION GAP; Value: 11; Range: 8-16; Units: MEQ/L; Status: F Test: CALCIUM LEVEL; Value: 8.0; Range: 8.5-10.1; Abnormal: Below low normal; Units: MG/DL; Status: F Test Note: ; Units are mL/min/1.73 m2 Chronic Kidney Disease Staging per NKF: Stage I & II GFR >=60 Normal to Mildly Decreased Stage III GFR 30-59 Moderately Decreased Stage IV GFR 15-29 Severely Decreased Stage V GFR <15 Very Little GFR Left ESRD GFR <15 on PACKAGER OR PACKER AND WEIGHER Lab Order: Complete Blood Count; SPEC'M 10/27/16 02:52 Test: WHITE BLOOD COUNT; Value: 7.1; Range: 4.0-10.0; Units: K/mm3; Status: F Test: RED BLOOD COUNT; Value: 4.45; Range: 4.30-6.10; Units: M/mm3; Status: F Test: HEMOGLOBIN; Value: 14.4; Range: 14.0-18.0; Units: g/dl; Status: F Test: HEMATOCRIT; Value: 41.6; Range: 42.0-52.0; Abnormal: Below low normal; Units: %; Status: F Test: MEAN CORPUSCULAR VOLUME; Value: 93.4; Range: 80.0-96.0; Units: fl; Status: F Test: MEAN CORPUSCULAR HEMOGLOBIN; Value: 32.2; Range: 27.0-33.0; Units: pg; Status: F Test: MEAN CORPUSCULAR HGB CONC; Value: 34.5; Range: 32.0-36.5; Units: g/dl; Status: F Test: RED CELL DISTRIBUTION WIDTH; Value: 12.6; Range: 11.5-14.5; Units: %; Status: F Test: PLATELET COUNT, AUTOMATED; Value: 195; Range: 150-450; Units: k/mm3; Status: F Lab Order: Drug Eval Toxicology ED Only; SPEC'M 10/27/16 02:52 Test: AMPHETAMINES LEVEL URINE; Value: NEGATIVE; Range: NEGATIVE; Status: F Test: BARBITURATES URINE; Value: NEGATIVE; Range: NEGATIVE; Status: F Test: BENZODIAZEPINES URINE; Value: NEGATIVE; Range: NEGATIVE; Status: F Test: CANNABINOIDS URINE; Value: POSITIVE; Range: NEGATIVE; Abnormal: Above high normal; Status: F Test: COCAINE METABOLITE URINE; Value: POSITIVE; Range: NEGATIVE; Abnormal: Above high normal; Status: F Test: METHADONE URINE; Value: NEGATIVE; Range: NEGATIVE; Status: F Test: OPIATES URINE; Value: NEGATIVE; Range: NEGATIVE; Status: F Test: TRICYCLIC ANTIDEPRESS URINE; Value: NEGATIVE; Range: NEGATIVE; Status: F Test Note: ; FALSE POSITIVE RESULTS CAN BE CAUSED BY THE USE OF PANTOPRAZOLE (PROTONIX). Lab Order: Ethyl Alcohol (ethanol); SPEC' 10/27/16 02:52 Test: ETHYL ALCOHOL (ETHANOL); Value: 0.172; Range: 0.000-0.010; Abnormal: Above high normal; Units: %; Status: F Lab Order: Liver Profile; [facility] 10/27/16 02:52 Test: AST/SGOT; Value: 30; Range: 15-37; Units: U/L; Status: F Test: ALT/SGPT; Value: 28; Range: 12-78; Units: U/L; Status: F Test: ALKALINE PHOSPHATASE; Value: 69; Range: 45-117; Units: U/L; Status: F Test: BILIRUBIN,TOTAL; Value: 0.2; Range: 0.2-1.0; Units: MG/DL; Status: F Test: BILIRUBIN,DIRECT; Value: < 0.1; Range: 0.0-0.2; Units: MG/DL; Status: F Test: TOTAL PROTEIN; Value: 7.6; Range: 6.4-8.2; Units: GM/DL; Status: F Test: ALBUMIN; Value: 4.0; Range: 3.2-5.2; Units: GM/DL; Status: F Test: ALBUMIN/GLOBULIN RATIO; Value: 1.11; Range: 1.00-1.93; Status: F Lab Order: Salicylate Level; [facility] 10/27/16 02:52 Test: SALICYLATE LEVEL; Value: 3.2; Range: 5.0-30.0; Abnormal: Below low normal; Units: MG/DL; Status: F Lab Order: Thyroid Stimulating Hormone; 10/27/16 02:52 Test: THYROID STIMULATING HORMONE; Value: 6.370; Range: 0.358-3.740; Abnormal: Above high normal; Units: uIU/ML; Status: F Radiology Order: EKG-ADULT Test: EKG-ADULT REASON FOR EXAMINATION: overdose; Stationary ECG Study; [facility] - ED; ; Test Date: 2016-10-27; Pat Name: CHANDLER BECKMAN Department:; Room: -; Gender: M Dance [employer] Hostess:; : 1985 Requested By: HERSON Mccarthy; Order Number: [id number] Reading MD: Jaelyn Hicks; Measurements; Intervals [place]; Rate: 65 P: 57; ID: [id number] QRS: 53; QRSD: 96 T: 52; QT: 369; QTc: 385; Interpretive Statements; SINUS RHYTHM; EARLY REPOLARIZATION; INCREASED RATE/REPOLARIZATION COMPARED 08/01/14; Electronically Signed On 10-27-2016 15:48:31 EST by Jaelyn Hicks; Outcome: 06:08 No special radiology studies were completed. [facility] 14:42 Discharge ordered by Provider. fg 15:01 Discharge Assessment: patient administered narcotics - no. The following High Risk j Discharge criteria are identified: Yes, seen by PFS prior to d/c. . Discharged to home ambulatory. Condition: stable. Discharge instructions given to patient, Instructed on discharge instructions, follow up and referral plans. 15:02 Patient left the ED. bcj Signatures: Dispatcher [employer] EDMS Jabari Doyle, RN RN Alycia Velazquez, Reg Reg gb Luisa, Lee, Security Aide Securf Jesusita Avelar, PSA PSA ml4 Herson Lugo, DO DO mm11 Cornelia Jang, RN RN Talha Gonzalez Marlynn mm15 Ayanna Augustine LPN LPN slm Dunaway, Emily,RN RN Odilon Orellana rn1 Valorie Turk MD MD fg Stanton, Hillary, Reg Reg hs2 Diana RubioRN RN jony2 Krystal Chaidez Tonya,RN RN tm5 Chart Complete MTDD
== END 2016-10-27 15:02 | disposition home or self-care (01) ==
LOC: M ED 02:36
DX: F10.129 Alcohol abuse with intoxication, unspecified (principal); R45.851 Suicidal ideations; G40.909 Epilepsy, unspecified, not intractable, without status epilepticus; J45.909 Unspecified asthma, uncomplicated; F31.9 Bipolar disorder, unspecified; F43.10 Post-traumatic stress disorder, unspecified; Z91.5 Personal history of self-harm
CPT/HCPCS: 36415; 80048; 80076; 80306; 84443; 85027; 93005; 99284; G0480

== ENCOUNTER → 2017-01-01 | Outpatient (REF) | payer MEDICAID ==
[2017-01-01 19:33] LABS: FREE T4 0.94 NG/DL (0.76-1.46)
== END ==
LOC: M LAB REF 17:02
PROVIDERS: ATTEND Nurse Practitioner Family
DX: R94.6 Abnormal results of thyroid function studies (principal)

== ENCOUNTER → 2017-01-07 | Outpatient (CLI) | payer MEDICAID ==
--- NOTE | 2017-01-07 17:59 | REP ---
PA and lateral chest: There are no comparisons. The lung elam are clear. The cardiac size is normal The cora, mediastinum, and bony thorax are unremarkable. Impression: Negative PA and lateral chest. Signed by Lance Marmolejo MD 01/07/2017 05:51 P
== END ==
LOC: M RAD 17:16
PROVIDERS: ATTEND Nurse Practitioner Family
DX: J45.909 Unspecified asthma, uncomplicated (principal)

== ENCOUNTER → 2017-01-07 | Outpatient (CLI) | payer MEDICAID ==
--- NOTE | 2017-01-07 17:26 | PFTRPT ---
PULMONARY FUNCTION REPORT ORDERING PROVIDER: ALEIDA Stevenson DATE OF SERVICE: 01/07/17 SPIROMETRY: Excellent technical quality. The forced vital capacity is normal. The FEV1 is generally in proportion. The obstructive index is, therefore, normal. FLOW VOLUME LOOP: The expiratory limb of the flow volume loop raises a question of some nonspecific flow rate reductions. LUNG VOLUMES: The total lung capacity is elevated. The residual volume suggests air trapping. DIFFUSION CAPACITY: The diffusion capacity is reduced and does not correct for alveolar volume. HEMOGLOBIN: No hemoglobin is available. AIRWAY MECHANICS: Airways resistance and conductance are normal. IMPRESSION: Nonspecific flow rate reduction with underlying air trapping and a mild diffusion capacity impairment. Please correlate clinically. MTDD
== END ==
LOC: M CARPUL 17:01
PROVIDERS: ATTEND Nurse Practitioner Family
DX: J45.909 Unspecified asthma, uncomplicated (principal)

== ENCOUNTER → 2017-04-14 | Outpatient (REF) | payer MEDICAID ==
[~2017-04-14] MED LIST changes: +AUGM500T34 PO; +AUGM875T28 PO; +GABA-283; +TRAZ50TA11 PO; -TRAZ50TA4 PO
== END ==
LOC: M LAB REF 13:35
PROVIDERS: ATTEND Nurse Practitioner Family
DX: R56.9 Unspecified convulsions (principal)

== ENCOUNTER → 2017-06-10 | Outpatient (REF) | payer MEDICAID | LOC: M LABNEURO 16:24 | PROVIDERS: ATTEND Psychiatry & Neurology Neurology | DX: G62.9 Polyneuropathy, unspecified (principal) ==

== ENCOUNTER 2017-06-18 16:40 | Emergency (ER) | payer MEDICAID ==
[~2017-06-18] VITALS: Ht 165.1 cm; Wt 61.4 kg
[~2017-06-18 16:40] MED LIST changes: -AUGM875T28 PO; -GABA-283
[2017-06-18 16:41] VITALS: BP 155/96
[2017-06-18] MEDS ORDERED: GABA-283 (16:55)
[2017-06-18] MEDS ORDERED: ADACEL/BOOSTRIX VACCINE (DIPHTH/PERTUSS/ACELL/TETANUS)0.5ML SYR (90715) IM ONE (18:45)
[2017-06-18] MEDS ORDERED: AUGM875T28 PO (18:50)
== END 2017-06-18 19:06 | disposition home or self-care (01) ==
LOC: M ED 16:40
DX: S91.332A Puncture wound without foreign body, left foot, initial encounter (principal); S71.132A Puncture wound without foreign body, left thigh, initial encounter; W45.8XXA Other foreign body or object entering through skin, initial encounter; Y92.89 Other specified places as the place of occurrence of the external cause; Y93.01 Activity, walking, marching and hiking; Y99.8 Other external cause status; F31.9 Bipolar disorder, unspecified; F17.210 Nicotine dependence, cigarettes, uncomplicated; Z79.899 Other long term (current) drug therapy; Z91.030 Bee allergy status

== ENCOUNTER 2017-09-14 01:27 | Emergency (ER) | payer MEDICAID ==
[~2017-09-14] VITALS: Ht 165.1 cm; Wt 61.4 kg
[2017-09-14 01:27] VITALS: BP 130/73
[~2017-09-14 01:27] MED LIST changes: +AUGM875T28 PO; +GABA-283
--- NOTE | 2017-09-14 02:40 | REPUSA ---
CLINICAL HISTORY: Head trauma. TECHNIQUE: Multiple axial brain CT scan sections were obtained from base to vertex without contrast a dministration. COMMENTS: Displaced fracture of the left zygomatic arch. Displaced fracture of the left lamina papyracea. Herniation of the left orbital fat/medial orbital muscle into the defect of the left ethmoid air cell s. The study shows normal configuration of sella turcica. There are no intra or extra-axial collections. There is no mass effect or midline shift. There is no evidence of hematoma formation. No hydrocephal us is present. No abnormal calcifications are noted. No significant abnormalities are seen either in the posterior fossa or supratentorial compartment. The remaining sinuses and mastoid air cells are patent. IMPRESSION: Displaced fracture of the left zygomatic arch. Displaced fracture of the left lamina papyracea. Herniation of the left orbital fat and the medial left orbital muscle through the defect with associa loly secondary muscular entrapment. Left orbital emphysema. Effusion in the left ethmoid air cells. No evidence of acute intracranial pathology. No intracranial hemorrhage. Thank you for your kind referral of this patient.
== END 2017-09-14 04:44 | disposition short-term general hospital (02) ==
LOC: M ED 01:27
DX: S02.40FA Zygomatic fracture, left side, initial encounter for closed fracture (principal); S02.82XA Fracture of other specified skull and facial bones, left side, initial encounter for closed fracture; Y04.8XXA Assault by other bodily force, initial encounter; Y92.89 Other specified places as the place of occurrence of the external cause; Y93.89 Activity, other specified; Y99.8 Other external cause status; M62.89 Other specified disorders of muscle; F41.9 Anxiety disorder, unspecified; F31.9 Bipolar disorder, unspecified; F17.210 Nicotine dependence, cigarettes, uncomplicated; Z79.899 Other long term (current) drug therapy; Z91.030 Bee allergy status; Z98.890 Other specified postprocedural states

== ENCOUNTER → 2017-09-16 | Outpatient (CLI) | payer MEDICAID ==
--- NOTE | 2017-09-16 20:42 | ECGEPIP ---
Stationary ECG Study [facility] Test Date: 2017-09-16 Pat Name: DULCE BECKMAN Department: Room: - Gender: M Public Relations: [place] : 1985 Requested By: Faustino Christie @ [facility] Order Number: [id number] Reading MD: Nik Hines Measurements Intervals [place] Rate: 65 P: 53 HI: 119 QRS: 60 QRSD: 88 T: 56 QT: 325 QTc: 339 Interpretive Statements SINUS RHYTHM WITH SHORT HI INTERVAL Electronically Signed On 09-16-2017 20:42:33 EST by Nik Hines
== END ==
LOC: M EKG 14:20
PROVIDERS: ATTEND Orthopaedic Surgery
DX: Z01.810 Encounter for preprocedural cardiovascular examination (principal); I10 Essential (primary) hypertension; G56.02 Carpal tunnel syndrome, left upper limb

== ENCOUNTER 2017-12-25 23:01 | Emergency (ER) | payer MEDICAID ==
[2017-12-25] MEDS: DERMABOND TOPICAL SKIN ADHESIVE TOP (23:15)
[2017-12-25 23:36] LABS: HEMATOCRIT 40.8 % (42.0-52.0); HEMOGLOBIN 14.2 g/dl (13.5-17.5); MEAN CORPUSCULAR HEMOGLOBIN 31.1 pg (27.0-33.0); MEAN CORPUSCULAR HGB CONC 34.8 g/dl (32.0-36.5); MEAN CORPUSCULAR VOLUME 89.5 fl (80.0-96.0); PLATELET COUNT, AUTOMATED 185 10^3/uL (150-450); RED BLOOD COUNT 4.56 10^6/uL (4.30-6.10); RED CELL DISTRIBUTION WIDTH 12.2 % (11.5-14.5); WHITE BLOOD COUNT 7.5 10^3/uL (4.0-10.0)
[2017-12-26] LABS: ALBUMIN 4.1 GM/DL (3.2-5.2); ALBUMIN/GLOBULIN RATIO 1.24 (1.00-1.93); ALKALINE PHOSPHATASE 62 U/L (45-117); ALT/SGPT 25 U/L (12-78); ANION GAP 9 MEQ/L (8-16); AST/SGOT 28 U/L (7-37); BILIRUBIN,DIRECT < 0.1 MG/DL (0.0-0.2); BILIRUBIN,TOTAL 0.2 MG/DL (0.2-1.0); BLOOD UREA NITROGEN 13 MG/DL (7-18); CALCIUM LEVEL 8.2 MG/DL (8.5-10.1); CARBON DIOXIDE LEVEL 25 MEQ/L (21-32); CHLORIDE LEVEL 107 MEQ/L (98-107); CREATININE FOR GFR 0.77 MG/DL (0.70-1.30); ETHYL ALCOHOL (ETHANOL) 0.317 % (0.000-0.010); GLOMERULAR FILTRATION RATE > 60.0 (>60); GLUCOSE, FASTING 98 MG/DL (70-100); POTASSIUM SERUM 3.2 MEQ/L (3.5-5.1); SODIUM LEVEL 141 MEQ/L (136-145); TOTAL PROTEIN 7.4 GM/DL (6.4-8.2)
[2017-12-26 01:06] LABS: AMPHETAMINES LEVEL URINE NEGATIVE (NEGATIVE); BARBITURATES URINE NEGATIVE (NEGATIVE); BENZODIAZEPINES URINE NEGATIVE (NEGATIVE); CANNABINOIDS URINE POSITIVE (NEGATIVE); COCAINE METABOLITE URINE NEGATIVE (NEGATIVE); METHADONE URINE NEGATIVE (NEGATIVE); OPIATES URINE NEGATIVE (NEGATIVE); PHENCYCLIDINE URINE NEGATIVE (NEGATIVE)
[2017-12-26] MEDS ORDERED: METAL LOCK LOOP XX (04:09)
[2017-12-26 08:13] LABS: ETHYL ALCOHOL (ETHANOL) 0.163 % (0.000-0.010)
== END 2017-12-26 10:49 | disposition home or self-care (01) ==
LOC: M ED 23:01
DX: F10.129 Alcohol abuse with intoxication, unspecified (principal); Y90.1 Blood alcohol level of 20-39 mg/100 ml; S01.111A Laceration without foreign body of right eyelid and periocular area, initial encounter; X58.XXXA Exposure to other specified factors, initial encounter; Y92.89 Other specified places as the place of occurrence of the external cause; Z79.899 Other long term (current) drug therapy; Z91.030 Bee allergy status
CPT/HCPCS: 70450

== ENCOUNTER → 2018-08-04 | Outpatient (REF) | payer MEDICAID ==
[2018-08-04 19:29] LABS: BASO # 0.1 10^3/uL (0.0-0.2); BASO % 0.8 % (0.0-1.0); EOS # 0.4 10^3/uL (0.0-0.50); EOS % 5.7 % (0.0-3.0); HEMOGLOBIN 14.1 g/dl (13.5-17.5); IMMATURE GRANULOCYTE % 0.2 % (0-3.0); LYMPH # 2.5 10^3/uL (1.5-4.5); LYMPH % 41.1 % (24.0-44.0); MEAN CORPUSCULAR HEMOGLOBIN 32.3 pg (27.0-33.0); MEAN CORPUSCULAR HGB CONC 33.6 g/dl (32.0-36.5); MEAN CORPUSCULAR VOLUME 96.3 fl (80.0-96.0); MONO # 0.5 10^3/uL (0.0-0.8); MONO % 7.8 % (0.0-5.0); NEUTROPHILS # 2.7 10^3/uL (1.8-7.7); NEUTROPHILS % 44.4 % (36.0-66.0); PLATELET COUNT, AUTOMATED 222 10^3/uL (150-450); RED BLOOD COUNT 4.36 10^6/uL (4.30-6.10); RED CELL DISTRIBUTION WIDTH 12.4 % (11.5-14.5); WHITE BLOOD COUNT 6.2 10^3/uL (4.0-10.0)
[2018-08-04 19:48] LABS: ALBUMIN/GLOBULIN RATIO 1.25 (1.00-1.93); ALKALINE PHOSPHATASE 64 U/L (45-117); ALT/SGPT 27 U/L (12-78); ANION GAP 7 MEQ/L (8-16); AST/SGOT 25 U/L (7-37); BILIRUBIN,TOTAL 0.2 MG/DL (0.2-1.0); BLOOD UREA NITROGEN 15 MG/DL (7-18); CALCIUM LEVEL 8.7 MG/DL (8.5-10.1); CARBON DIOXIDE LEVEL 27 MEQ/L (21-32); CHLORIDE LEVEL 106 MEQ/L (98-107); CREATININE FOR GFR 0.92 MG/DL (0.70-1.30); GLOMERULAR FILTRATION RATE > 60.0 (>60); GLUCOSE, FASTING 88 MG/DL (70-100); POTASSIUM SERUM 4.5 MEQ/L (3.5-5.1); SODIUM LEVEL 140 MEQ/L (136-145); TOTAL PROTEIN 7.2 GM/DL (6.4-8.2); VALPROIC ACID (DEPAKOTE) 81.5 UG/ML (50.0-100.0)
== END ==
LOC: M LAB REF 17:26
DX: F31.9 Bipolar disorder, unspecified (principal); R56.9 Unspecified convulsions
CPT/HCPCS: 84443

== ENCOUNTER → 2019-05-17 | Outpatient (CLI) | payer MEDICAID ==
[~2019-05-17] MED LIST changes: +DIVA250T67; -GABA-283; +GABA-845; +IBUP-1022 PO; +MIRT15TA3; +TRAZ-189; +TRAZ-252 PO; -TRAZ50TA11 PO
[2019-05-17 13:23] LABS: BASO % 0.6 % (0.0-1.0); EOS % 0.4 % (0.0-3.0); HEMATOCRIT 44.9 % (42.0-52.0); HEMOGLOBIN 15.4 g/dl (13.5-17.5); LYMPH # 1.4 10^3/uL (1.5-4.5); LYMPH % 19.9 % (24.0-44.0); MEAN CORPUSCULAR HGB CONC 34.3 g/dl (32.0-36.5); MEAN CORPUSCULAR VOLUME 93.3 fl (80.0-96.0); MONO # 0.5 10^3/uL (0.0-0.8); MONO % 7.3 % (0.0-5.0); NEUTROPHILS % 71.5 % (36.0-66.0); PLATELET COUNT, AUTOMATED 223 10^3/uL (150-450); RED BLOOD COUNT 4.81 10^6/uL (4.30-6.10)
[2019-05-17 13:46] LABS: HEMOGLOBIN A1c 5.6 %
[2019-05-17 13:51] LABS: BLOOD UREA NITROGEN 12 MG/DL (7-18); CALCIUM LEVEL 9.2 MG/DL (8.5-10.1); CARBON DIOXIDE LEVEL 28 MEQ/L (21-32); CHLORIDE LEVEL 103 MEQ/L (98-107); CHOLESTEROL LEVEL 210 MG/DL (<200); CHOLESTEROL RISK RATIO 3.088 (<5); GLOMERULAR FILTRATION RATE > 60.0 (>60); GLUCOSE, FASTING 149 MG/DL (70-100); HDL CHOLESTEROL 68 MG/DL (>40); LDL CHOLESTEROL 122 MG/DL (<100); NON-HDL-C 142 MG/DL; PROLACTIN 5.6 NG/ML (2.1-17.7); SODIUM LEVEL 139 MEQ/L (136-145); TRIGLYCERIDES LEVEL 98 MG/DL (<150); VALPROIC ACID (DEPAKOTE) 9.1 UG/ML (50.0-100.0)
== END ==
LOC: M LAB 12:16
PROVIDERS: ATTEND Nurse Practitioner Psychiatric/Mental Health
DX: F31.9 Bipolar disorder, unspecified (principal)

== ENCOUNTER 2019-06-12 19:32 | Emergency (ER) | payer MEDICAID ==
[~2019-06-12] VITALS: Ht 167.6 cm; Wt 69.1 kg
[2019-06-12 19:43] VITALS: BP 121/73
== END 2019-06-12 21:58 | disposition home or self-care (01) ==
LOC: M ED 19:32
DX: F10.129 Alcohol abuse with intoxication, unspecified (principal)

== ENCOUNTER → 2019-09-27 | Outpatient (REF) | payer MEDICAID ==
[2019-09-27 18:43] LABS: ALBUMIN 3.9 GM/DL (3.2-5.2); ALT/SGPT 20 U/L (12-78); BILIRUBIN,TOTAL 0.3 MG/DL (0.2-1.0); BLOOD UREA NITROGEN 24 MG/DL (7-18); CALCIUM LEVEL 8.8 MG/DL (8.5-10.1); CARBON DIOXIDE LEVEL 27 MEQ/L (21-32); CHLORIDE LEVEL 104 MEQ/L (98-107); CREATININE FOR GFR 0.98 MG/DL (0.70-1.30); FREE T4 0.92 NG/DL (0.76-1.46); GLOMERULAR FILTRATION RATE > 60.0 (>60); GLUCOSE, FASTING 117 MG/DL (70-100); POTASSIUM SERUM 3.8 MEQ/L (3.5-5.1); SODIUM LEVEL 139 MEQ/L (136-145); TOTAL PROTEIN 7.2 GM/DL (6.4-8.2)
[2019-09-27 18:56] LABS: HEMOGLOBIN A1c 5.7 %
== END ==
LOC: M LAB REF 16:53
PROVIDERS: ATTEND Family Medicine
DX: R73.03 Prediabetes (principal); E03.8 Other specified hypothyroidism

== ENCOUNTER → 2020-06-07 | Outpatient (CLI) | payer MEDICAID ==
[2020-06-07 10:55] LABS: HEMOGLOBIN 15.1 g/dl (13.5-17.5); MEAN CORPUSCULAR HEMOGLOBIN 31.8 pg (27.0-33.0); MEAN CORPUSCULAR HGB CONC 32.8 g/dl (32.0-36.5); MEAN CORPUSCULAR VOLUME 96.8 fl (80.0-96.0); PLATELET COUNT, AUTOMATED 199 10^3/uL (150-450); RED BLOOD COUNT 4.75 10^6/uL (4.30-6.10); WHITE BLOOD COUNT 5.3 10^3/uL (4.0-10.0)
[2020-06-07 11:25] LABS: ALBUMIN 3.7 GM/DL (3.2-5.2); ALT/SGPT 29 U/L (12-78); BILIRUBIN,TOTAL 0.3 MG/DL (0.2-1.0); BLOOD UREA NITROGEN 20 MG/DL (7-18); CALCIUM LEVEL 8.7 MG/DL (8.5-10.1); CARBON DIOXIDE LEVEL 28 MEQ/L (21-32); CHLORIDE LEVEL 107 MEQ/L (98-107); CREATININE FOR GFR 0.92 MG/DL (0.70-1.30); GLOMERULAR FILTRATION RATE > 60.0 (>60); GLUCOSE, FASTING 96 MG/DL (70-100); POTASSIUM SERUM 4.4 MEQ/L (3.5-5.1); SODIUM LEVEL 140 MEQ/L (136-145); VALPROIC ACID (DEPAKOTE) 62.6 UG/ML (50.0-100.0)
[2020-06-07 12:26] LABS: HEMOGLOBIN A1c 5.3 %
== END ==
LOC: M LAB 09:54
PROVIDERS: ATTEND Psychiatry & Neurology Child & Adolescent Psychiatry
DX: F31.9 Bipolar disorder, unspecified (principal)

== ENCOUNTER 2021-10-12 23:05 | Emergency (ER) | payer MEDICAID ==
[~2021-10-12] VITALS: Ht 165.1 cm; Wt 72.0 kg
[~2021-10-12 23:05] MED LIST changes: +GABA-283; -GABA-845; +MIRT-62 PO; -REME15TA PO
[2021-10-13 00:44] LABS: HEMATOCRIT 41.5 % (42.0-52.0); MEAN CORPUSCULAR HEMOGLOBIN 31.5 pg (27.0-33.0); MEAN CORPUSCULAR HGB CONC 33.7 g/dl (32.0-36.5); MEAN CORPUSCULAR VOLUME 93.5 fl (80.0-96.0); PLATELET COUNT, AUTOMATED 233 10^3/uL (150-450); RED BLOOD COUNT 4.44 10^6/uL (4.30-6.10); WHITE BLOOD COUNT 7.5 10^3/uL (4.0-10.0)
[2021-10-13 00:52] LABS: AMPHETAMINES LEVEL URINE NEGATIVE (NEGATIVE); BARBITURATES URINE NEGATIVE (NEGATIVE); BENZODIAZEPINES URINE NEGATIVE (NEGATIVE); CANNABINOIDS URINE POSITIVE (NEGATIVE); COCAINE METABOLITE URINE NEGATIVE (NEGATIVE); METHADONE URINE NEGATIVE (NEGATIVE); OPIATES URINE NEGATIVE (NEGATIVE); PHENCYCLIDINE URINE NEGATIVE (NEGATIVE)
[2021-10-13] MEDS ORDERED: DIVA500T94 PO (00:56)
[2021-10-13] MEDS ORDERED: GABA-282 PO (00:56)
[2021-10-13] MEDS ORDERED: QUET400T2 PO (00:56)
[2021-10-13 01:14] LABS: ACETAMINOPHEN LEVEL < 2.0 UG/ML (10.0-30.0); ALBUMIN 3.9 GM/DL (3.2-5.2); ALT/SGPT 35 U/L (12-78); BILIRUBIN,DIRECT < 0.1 MG/DL (0.0-0.2); BLOOD UREA NITROGEN 15 MG/DL (7-18); CALCIUM LEVEL 8.7 MG/DL (8.5-10.1); CARBON DIOXIDE LEVEL 27 MEQ/L (21-32); CHLORIDE LEVEL 107 MEQ/L (98-107); CREATININE FOR GFR 0.79 MG/DL (0.70-1.30); ETHYL ALCOHOL (ETHANOL) 0.197 % (0.000-0.010); GLOMERULAR FILTRATION RATE > 60.0 (>60); GLUCOSE, FASTING 94 MG/DL (70-100); POTASSIUM SERUM 3.7 MEQ/L (3.5-5.1); SALICYLATE LEVEL 4.5 MG/DL (5.0-30.0); SODIUM LEVEL 140 MEQ/L (136-145); TOTAL PROTEIN 7.2 GM/DL (6.4-8.2); VALPROIC ACID (DEPAKOTE) 26.7 UG/ML (50.0-100.0)
[2021-10-13 01:33] LABS: BILIRUBIN,TOTAL 0.1 MG/DL (0.2-1.0)
[2021-10-13 06:29] VITALS: BP 145/78
== END 2021-10-13 07:51 | disposition home or self-care (01) ==
LOC: M ED 23:05
DX: F10.129 Alcohol abuse with intoxication, unspecified (principal); F17.200 Nicotine dependence, unspecified, uncomplicated; Z79.899 Other long term (current) drug therapy

== ENCOUNTER → 2022-08-20 | Outpatient (REF) ==
[~2022-08-20] MED LIST changes: +DIVA500T94 PO; +GABA-282 PO; +QUET400T2 PO
== END ==
LOC: M PLAIMG 13:33
PROVIDERS: ATTEND Internal Medicine
DX: Z11.52 Encounter for screening for COVID-19 (principal)

== ENCOUNTER → 2022-10-08 | Outpatient (CLI) | payer MEDICAID ==
[2022-10-08 13:28] LABS: BASO % 0.3 % (0.0-1.0); EOS # 0.1 10^3/uL (0.0-0.5); HEMATOCRIT 44.5 % (42.0-52.0); HEMOGLOBIN 14.7 g/dl (13.5-17.5); LYMPH # 1.8 10^3/uL (1.5-5.0); LYMPH % 30.8 % (24.0-44.0); MEAN CORPUSCULAR HEMOGLOBIN 31.4 pg (27.0-33.0); MEAN CORPUSCULAR VOLUME 95.1 fl (80.0-96.0); MONO # 0.4 10^3/uL (0.0-0.8); NEUTROPHILS # 3.6 10^3/uL (1.5-8.5); NEUTROPHILS % 60.7 % (36.0-66.0); PLATELET COUNT, AUTOMATED 188 10^3/uL (150-450); RED BLOOD COUNT 4.68 10^6/uL (4.30-6.10); WHITE BLOOD COUNT 5.9 10^3/uL (4.0-10.0)
[2022-10-08 13:52] LABS: HEMOGLOBIN A1c 5.1 % (4.0-6.0)
[2022-10-08 13:56] LABS: VALPROIC ACID (DEPAKOTE) 47.9 UG/ML (50.0-100.0)
[2022-10-08 13:57] LABS: ALBUMIN 4.3 G/DL (3.2-5.2); ALKALINE PHOSPHATASE 66 U/L (46-116); ALT/SGPT 20 U/L (7.0-40); AST/SGOT 27 U/L (<34); BILIRUBIN,TOTAL 0.3 MG/DL (0.3-1.2); BLOOD UREA NITROGEN 19 MG/DL (9-23); CALCIUM LEVEL 9.5 MG/DL (8.5-10.1); CARBON DIOXIDE LEVEL 28 MMOL/L (20-31); CHLORIDE LEVEL 106 MMOL/L (98-107); CHOLESTEROL LEVEL 174 MG/DL (<200); CHOLESTEROL RISK RATIO 4.21 (<5); CREATININE FOR GFR 0.88 MG/DL (0.70-1.30); GLOMERULAR FILTRATION RATE > 60.0 (>60); GLUCOSE, FASTING 107 MG/DL (60-100); HDL CHOLESTEROL 41.3 MG/DL (>40); LDL CHOLESTEROL 94.9 MG/DL (<100); NON-HDL-C 133 MG/DL; POTASSIUM SERUM 4.4 MMOL/L (3.5-5.1); SODIUM LEVEL 143 MMOL/L (136-145); TOTAL PROTEIN 7.4 G/DL (5.7-8.2); TRIGLYCERIDES LEVEL 189 MG/DL (<150)
[2022-10-08 13:58] LABS: THYROID STIMULATING HORMONE 4.038 uIU/ML (0.55-4.78)
== END ==
LOC: M LAB 12:59
PROVIDERS: ATTEND Student in an Organized Health Care Education/Training Program
DX: F31.9 Bipolar disorder, unspecified (principal)

== ENCOUNTER → 2023-06-06 | Outpatient (CLI) | payer MEDICAID ==
[~2023-06-06] MED LIST changes: -GABA-283; +GABA-284; -MIRT-62 PO; +MIRT-88 PO
== END ==
LOC: M SOG 08:03
PROVIDERS: ATTEND Orthopaedic Surgery
DX: M54.50 Low back pain, unspecified (principal)

== ENCOUNTER 2023-08-07 17:23 | Emergency (ER) | payer MEDICAID ==
[~2023-08-07] VITALS: Ht 165.1 cm; Wt 66.6 kg
[2023-08-07 17:24] VITALS: BP 143/70; TEMP 98.9; O2SAT 98
== END 2023-08-07 21:51 | disposition left against medical advice (07) ==
LOC: M ED 17:23
DX: Z53.21 Procedure and treatment not carried out due to patient leaving prior to being seen by health care provider (principal)

== ENCOUNTER → 2023-12-01 | Outpatient (REF) | payer MEDICAID ==
[2023-12-01 18:50] LABS: BASO # 0.1 10^3/uL (0.0-0.2); BASO % 0.7 % (0.0-1.0); EOS # 0.1 10^3/uL (0.0-0.5); EOS % 1.3 % (0.0-3.0); HEMATOCRIT 42.9 % (42.0-52.0); HEMOGLOBIN 14.3 g/dl (13.5-17.5); LYMPH % 35.1 % (24.0-44.0); MEAN CORPUSCULAR HEMOGLOBIN 30.8 pg (27.0-33.0); MEAN CORPUSCULAR HGB CONC 33.3 g/dl (32.0-36.5); MEAN CORPUSCULAR VOLUME 92.5 fl (80.0-96.0); MONO # 0.7 10^3/uL (0.0-0.8); MONO % 8.3 % (2.0-8.0); NEUTROPHILS # 4.7 10^3/uL (1.5-8.5); NEUTROPHILS % 54.4 % (36.0-66.0); PLATELET COUNT, AUTOMATED 238 10^3/uL (150-450); RED BLOOD COUNT 4.64 10^6/uL (4.30-6.10); WHITE BLOOD COUNT 8.6 10^3/uL (4.0-10.0)
[2023-12-01 19:05] LABS: HEMOGLOBIN A1c 5.4 % (4.0-6.0)
[2023-12-01 19:16] LABS: ALBUMIN 4.2 G/DL (3.2-5.2); ALKALINE PHOSPHATASE 62 U/L (46-116); ALT/SGPT 22 U/L (7.0-40); AST/SGOT 22 U/L (<34); BILIRUBIN,TOTAL 0.4 MG/DL (0.3-1.2); BLOOD UREA NITROGEN 15 MG/DL (9-23); CALCIUM LEVEL 8.6 MG/DL (8.5-10.1); CARBON DIOXIDE LEVEL 25 MMOL/L (20-31); CHLORIDE LEVEL 105 MMOL/L (98-107); CHOLESTEROL LEVEL 156 MG/DL (<200); CHOLESTEROL RISK RATIO 4.28 (<5); CREATININE FOR GFR 0.83 MG/DL (0.70-1.30); GLOMERULAR FILTRATION RATE > 60.0 (>60); GLUCOSE, FASTING 89 MG/DL (60-100); HDL CHOLESTEROL 36.4 MG/DL (>40); LDL CHOLESTEROL 85.4 MG/DL (<100); NON-HDL-C 119.6 MG/DL; SODIUM LEVEL 137 MMOL/L (136-145); TOTAL PROTEIN 6.8 G/DL (5.7-8.2); TRIGLYCERIDES LEVEL 171 MG/DL (<150)
[2023-12-01 19:17] LABS: THYROID STIMULATING HORMONE 1.761 uIU/ML (0.55-4.78)
== END ==
LOC: M LAB REF 18:05
PROVIDERS: ATTEND Pediatrics
DX: Z76.89 Persons encountering health services in other specified circumstances (principal)

== ENCOUNTER → 2024-01-30 | Outpatient (CLI) | payer MEDICAID | LOC: M PLAIMG 10:32 | PROVIDERS: ATTEND Physician Assistant Surgical | DX: M43.16 Spondylolisthesis, lumbar region (principal); M47.26 Other spondylosis with radiculopathy, lumbar region; M51.36 Other intervertebral disc degeneration, lumbar region ==

== ENCOUNTER 2024-10-12 08:01 | Day surgery (SDC) | payer MEDICAID ==
[~2024-10-12] VITALS: Ht 162.6 cm; Wt 63.5 kg
[~2024-10-12 08:01] MED LIST changes: +GABA-1172 PO; -GABA-282 PO
[2024-10-12] MEDS: NS (Normal Saline) 0.9% 1,000 ML IV SCH (08:56)
[2024-10-12] MEDS ORDERED: propofoL 200 MG/20 ML VIAL As Ordered ONE (09:15)
[2024-10-12] MEDS ORDERED: ACETAMINOPHEN 1000MG/100ML IV BAG As Ordered ONE (09:15)
[2024-10-12] MEDS ORDERED: SUGAMMADEX SODIUM 500 MG/5 ML VIAL (BRIDION) As Ordered ONE (09:15)
[2024-10-12] MEDS ORDERED: ONDANSETRON 4MG 2ML VIAL As Ordered ONE (09:15)
[2024-10-12] MEDS ORDERED: ROCURONIUM BROMIDE 50MG/5ML VIAL As Ordered ONE (09:15)
[2024-10-12] MEDS ORDERED: LIDOCAINE 2% 100MG/5ML SDV (FOR ANES.) As Ordered ONE (09:15)
[2024-10-12] MEDS ORDERED: fentaNYL 100 MCG/2 ML INJECTION As Ordered ONE (09:16)
[2024-10-12] MEDS ORDERED: MIDAZOLAM INJ 2MG/2ML VIAL As Ordered ONE (09:16)
[2024-10-12] MEDS: IPRATROPIUM 0.5MG/ALBUTEROL 2.5MG INH SOL UD 3ML (DUONEB) NEB ONE (09:19)
[2024-10-12] MEDS: HEPARIN SOD (PORCINE) 5000UNITS/ML 1ML VIAL/SYRINGE SQ ONE (10:30)
[2024-10-12] MEDS: ceFAZolin SOD 2 GM in IV 1 EA IV ONE (10:30)
[2024-10-12] MEDS ORDERED: KETOROLAC 60MG 2ML VIAL As Ordered ONE (11:20)
[2024-10-12] MEDS ORDERED: HYDROMORPHONE HCL 0.5 MG/ 0.5 ML SYRINGE IV PRN (11:55)
[2024-10-12] MEDS ORDERED: NS (Normal Saline) 0.9% 1,000 ML IV SCH (11:55)
[2024-10-12] MEDS ORDERED: ONDANSETRON 4MG 2ML VIAL IV PRN (11:55)
[2024-10-12] MEDS ORDERED: oxyCODONE 5MG TAB PO PRN (11:55)
[2024-10-12] MEDS ORDERED: fentaNYL 100 MCG/2 ML INJECTION IV PRN (11:55)
[2024-10-12 13:12] VITALS: BP 135/70; TEMP 97.4; O2SAT 99
== END 2024-10-12 13:25 | disposition home or self-care (01) ==
LOC: M SDC 08:01
PROVIDERS: ATTEND Surgery
DX: K40.90 Unilateral inguinal hernia, without obstruction or gangrene, not specified as recurrent (principal); R56.9 Unspecified convulsions; Z79.899 Other long term (current) drug therapy; F32.A Depression, unspecified; F17.210 Nicotine dependence, cigarettes, uncomplicated
CPT/HCPCS: 49650; C1781; J0131; J0665; J0690; J1100; J1885; J2250; J2405; J3010; S2900

== ENCOUNTER → 2024-11-25 | Outpatient (CLI) | payer MEDICAID ==
[2024-11-25 12:55] LABS: HEMATOCRIT 45.4 % (42.0-52.0); HEMOGLOBIN 15.4 g/dl (13.5-17.5); MEAN CORPUSCULAR HEMOGLOBIN 31.6 pg (27.0-33.0); MEAN CORPUSCULAR HGB CONC 33.9 g/dl (32.0-36.5); MEAN CORPUSCULAR VOLUME 93.2 fl (80.0-96.0); PLATELET COUNT, AUTOMATED 295 10^3/uL (150-450); RED BLOOD COUNT 4.87 10^6/uL (4.30-6.10); WHITE BLOOD COUNT 8.3 10^3/uL (4.0-10.0)
[2024-11-25 13:17] LABS: HEMOGLOBIN A1c 5.4 % (4.0-6.0)
[2024-11-25 13:35] LABS: ALBUMIN 4.4 G/DL (3.2-5.2); ALKALINE PHOSPHATASE 79 U/L (40-129); ALT/SGPT 44 U/L (7.0-40); AST/SGOT 23 U/L (<34); BILIRUBIN,TOTAL 0.3 MG/DL (0.3-1.2); BLOOD UREA NITROGEN 21 MG/DL (9-23); CALCIUM LEVEL 9.4 MG/DL (8.5-10.1); CARBON DIOXIDE LEVEL 28 MMOL/L (20-31); CHLORIDE LEVEL 104 MMOL/L (98-107); CREATININE FOR GFR 0.68 MG/DL (0.70-1.30); GLOMERULAR FILTRATION RATE > 60.0 (>60); GLUCOSE, FASTING 106 MG/DL (60-100); POTASSIUM SERUM 4.7 MMOL/L (3.5-5.1); SODIUM LEVEL 139 MMOL/L (136-145); TOTAL PROTEIN 7.6 G/DL (5.7-8.2)
== END ==
LOC: M LAB 11:53
PROVIDERS: ATTEND Student in an Organized Health Care Education/Training Program
DX: F31.81 Bipolar II disorder (principal)

== ENCOUNTER 2025-07-04 15:36 | Emergency (ER) | payer MEDICAID ==
[~2025-07-04] VITALS: Ht 162.6 cm; Wt 59.1 kg
[~2025-07-04 15:36] MED LIST changes: -DEPA250T32 PO; +DIVA-41 PO; +DIVA-65 PO; -DIVA500T94 PO; -IBUP-1022 PO; +IBUP600T42 PO
[2025-07-04] MEDS ORDERED: ACET-840 (15:55)
[2025-07-04] MEDS ORDERED: QUET200T2 (15:55)
[2025-07-04] MEDS ORDERED: CELE0.09 (15:55)
[2025-07-04 16:03] VITALS: BP 134/83; TEMP 98.3; O2SAT 98
[2025-07-04] MEDS ORDERED: DIPH50CA31 PO (18:23)
[2025-07-04] MEDS ORDERED: PEPC40TA12 PO (18:23)
== END 2025-07-04 18:54 | disposition home or self-care (01) ==
LOC: M ED 15:36
DX: T78.40XA Allergy, unspecified, initial encounter (principal); L29.89 Other pruritus; R21 Rash and other nonspecific skin eruption; B88.8 Other specified infestations; F31.9 Bipolar disorder, unspecified; F17.210 Nicotine dependence, cigarettes, uncomplicated; Z79.1 Long term (current) use of non-steroidal anti-inflammatories (NSAID); Z79.899 Other long term (current) drug therapy